=== PATIENT | male | born 1955 | race Hispanic/Latino ===

== ENCOUNTER 2023-02-22 17:49 | Inpatient (IN) | payer MEDICARE ==
[~2023-02-22] VITALS: Ht 177.8 cm; Wt 61.2 kg
[2023-02-22] MEDS ORDERED: SODIUM CHLORIDE 0.9% 1000ML 1,000 ML IV STA (18:23)
[2023-02-22] MEDS ORDERED: ACETAMINOPHEN 325 MG TAB PO ONE (18:30)
[2023-02-22 18:45] LABS: BASOPHILS % 0.2 % (0.0-1.0); EOSINOPHILS % 0.2 % (0.0-6.0); HEMATOCRIT 25.1 % (38.2-49.6); HEMOGLOBIN 8.8 g/dL (14.0-18.0); LYMPHOCYTES # (AUTO) 0.7 (1.0-3.2); LYMPHOCYTES % 12.6 % (18.0-39.1); MEAN CORPUSCULAR HGB CONC 35.1 g/dL (31-35); MEAN CORPUSCULAR VOLUME 91.3 fL (81-99); MONOCYTES # (AUTO) 0.2 (0.2-0.8); MONOCYTES % 3.5 % (4.4-11.3); NEUTROPHILS # (AUTO) 4.4 (2.1-6.9); PLATELET COUNT 102 x10e3/uL (140-360); RED BLOOD COUNT 2.75 x10e6/uL (4.3-5.7); RED CELL DISTRIBUTION WIDTH 14.7 % (11.7-14.4)
[2023-02-22 18:52] LABS: CLARITY,URINE SL CLOUDY (CLEAR); COLOR,URINE AMBER (YELLOW); KETONES,URINE TRACE (NEGATIVE); LEUKOCYTE ESTERASE ,URINE NEGATIVE (NEGATIVE); NITRITE,URINE NEGATIVE (NEGATIVE); PROTEIN,URINE DIPSTICK 1+ (NEGATIVE); URINE UROBILINOGEN 0.2 mg/dL (0.2 - 1)
[2023-02-22 19:04] LABS: AMORPHOUS SEDIMENT,URINE MODERATE (FEW); BACTERIA,URINE MODERATE /HPF; MUCUS,URINE MODERATE (RARE); WBC,URINE (MAN) 0-5 /HPF (0-5)
[2023-02-22 19:05] LABS: ALANINE AMINOTRANSFERASE 31 IU/L (0-55); ALBUMIN 2.2 g/dL (3.5-5.0); ALBUMIN/GLOBULIN RATIO 0.5 (0.8-2.0); ALKALINE PHOSPHATASE 46 IU/L (40-150); ANION GAP 11.6 mmol/L (8-16); BLOOD UREA NITROGEN 20 mg/dL (7-26); BUN/CREATININE RATIO 29 (6-25); CALCIUM 8.8 mg/dL (8.4-10.2); CARBON DIOXIDE 24 mmol/L (22-29); CHLORIDE 96 mmol/L (98-107); CREATINE KINASE 8 IU/L (30-200); GLUCOSE 106 mg/dL (74-118); POTASSIUM 3.6 mmol/L (3.5-5.1); SODIUM 128 mmol/L (136-145)
[2023-02-22] MEDS ORDERED: Morphine 2mg Syringe 2 MG/ML SYR IV PRN (19:45)
[2023-02-22] MEDS ORDERED: IOPAMIDOL 370 MG/ML 100 ML INFUS..BTL INJ ONE (19:49)
[2023-02-22] MEDS ORDERED: SODIUM CHLORIDE 0.9% 1000ML 1,000 ML ONE (19:54)
[2023-02-22] MEDS ORDERED: ONDANSETRON HCL INJ 2MG/ML 2ML 2 MG/ML VIAL ONE (19:59)
[2023-02-22] MEDS ORDERED: Morphine 2mg Syringe 2 MG/ML SYR ONE (20:00)
[2023-02-22] MEDS: SODIUM CHLORIDE 0.9% 1000ML 1,000 ML IV SCH (20:19)
[2023-02-22] MEDS: ONDANSETRON HCL INJ 2MG/ML 2ML 2 MG/ML VIAL IV PRN (20:22)
[2023-02-22] MEDS ORDERED: SODIUM CHLORIDE 0.9% 1000ML 1,000 ML IV ONE (21:45)
[2023-02-22] MEDS ORDERED: OSELTAMIVIR PHOSPHATE 75 MG CAP PO ONE (22:12)
[2023-02-22] MEDS: OSELTAMIVIR PHOSPHATE 75 MG CAP PO SCH (22:16)
[2023-02-23] VITALS (9 sets, daily range): BP systolic 98–109; BP diastolic 58–68
[2023-02-23] MEDS ORDERED: PREDNISONE5 MG PO (01:09)
[2023-02-23] MEDS ORDERED: TRAZODONE HCL50 MG PO (01:09)
[2023-02-23] MEDS ORDERED: MAGOX 400400 MG PO (01:09)
[2023-02-23] MEDS ORDERED: FLOMAX0.4 MG PO (01:09)
[2023-02-23] MEDS ORDERED: NAPROXEN375 M1 PO (01:09)
[2023-02-23] MEDS ORDERED: PLAQUENIL200 MG PO (01:09)
[2023-02-23] MEDS: ONDANSETRON HCL INJ 2MG/ML 2ML 2 MG/ML VIAL IV PRN ×2 (01:54→01:55)
[2023-02-23] MEDS ORDERED: GUAIFENESIN/DEXTROMETHORPHAN LIQD 5 ML UDC PO PRN (04:30)
[2023-02-23] MEDS ORDERED: ALBUTEROL SULF 0.083% NEB SOLN 3 ML NEB NEB PRN (04:30)
[2023-02-23] MEDS ORDERED: MAGNESIUM/ALUMINUM/SIMETHICONE 30 ML UDC PO PRN (04:30)
[2023-02-23] MEDS ORDERED: HYDRALAZINE HCL 20 MG/ML VIAL IV PRN (04:30)
[2023-02-23] MEDS ORDERED: MELATONIN 3 MG TAB PO PRN (04:30)
[2023-02-23] MEDS: SODIUM CHLORIDE 0.9% 1000ML 1,000 ML IV SCH ×3 (05:40→20:19)
[2023-02-23 06:38] LABS: ALBUMIN 1.7 g/dL (3.5-5.0); ALBUMIN/GLOBULIN RATIO 0.5 (0.8-2.0); ANION GAP 9.7 mmol/L (8-16); CALCIUM 7.6 mg/dL (8.4-10.2); CREATININE, SERUM 0.68 mg/dL (0.72-1.25); POTASSIUM 3.7 mmol/L (3.5-5.1)
[2023-02-23 06:55] LABS: EOSINOPHILS % 0.6 % (0.0-6.0); HEMOGLOBIN 7.2 g/dL (14.0-18.0); LYMPHOCYTES # (AUTO) 0.5 (1.0-3.2); LYMPHOCYTES % 14.7 % (18.0-39.1); MEAN CORPUSCULAR HEMOGLOBIN 32.6 pg (28-32); MEAN CORPUSCULAR VOLUME 95.9 fL (81-99); MONOCYTES # (AUTO) 0.2 (0.2-0.8); MONOCYTES % 5.3 % (4.4-11.3); NEUTROPHILS # (AUTO) 2.5 (2.1-6.9); NEUTROPHILS % 76.9 % (38.7-80.0); RED BLOOD COUNT 2.21 x10e6/uL (4.3-5.7); RED CELL DISTRIBUTION WIDTH 14.9 % (11.7-14.4)
[2023-02-23 06:59] LABS: PLATELET COUNT 103 x10e3/uL (140-360)
[2023-02-23 07:04] LABS: HEMATOCRIT 21.2 % (38.2-49.6)
[2023-02-23] MEDS: OSELTAMIVIR PHOSPHATE 75 MG CAP PO SCH ×2 (07:58→16:38)
[2023-02-23] MEDS: HYDROXYCHLOROQUINE SULFATE 200 MG TAB PO SCH (07:58)
[2023-02-23] MEDS: PREDNISONE 5 MG TAB PO SCH (07:58)
[2023-02-23] MEDS: MULTIVITAMINS/MINERALS TAB PO SCH (07:58)
[2023-02-23] MEDS: TAMSULOSIN HCL 0.4 MG CAP PO SCH (07:58)
[2023-02-23] MEDS: MAGNESIUM OXIDE 400 MG TAB PO SCH ×2 (07:58→16:38)
[2023-02-23] MEDS: TRAMADOL HCL 50 MG TAB PO PRN (12:18)
[2023-02-23] MEDS ORDERED: ENOXAPARIN SOD INJ 40 MG/0.4 ML SYR SC SCH (17:00)
[2023-02-23] MEDS: TRAZODONE HCL 50 MG TAB PO SCH (20:19)
[2023-02-24] VITALS (8 sets, daily range): BP systolic 99–117; BP diastolic 60–78
[2023-02-24] MEDS: TRAMADOL HCL 50 MG TAB PO PRN ×3 (01:37→20:48)
[2023-02-24] MEDS: ACETAMINOPHEN 325 MG TAB PO PRN (01:38)
[2023-02-24] MEDS ORDERED: IOPAMIDOL 370 MG/ML 100 ML INFUS..BTL INJ ONE (01:39)
[2023-02-24] MEDS: SODIUM CHLORIDE 0.9% 1000ML 1,000 ML IV SCH ×2 (05:03→12:19)
[2023-02-24 07:51] LABS: FERRITIN 2486.99 ng/mL (21.81-274.66)
[2023-02-24] MEDS: HYDROXYCHLOROQUINE SULFATE 200 MG TAB PO SCH (08:05)
[2023-02-24] MEDS: MAGNESIUM OXIDE 400 MG TAB PO SCH ×2 (08:05→16:40)
[2023-02-24] MEDS: TAMSULOSIN HCL 0.4 MG CAP PO SCH (08:05)
[2023-02-24] MEDS: OSELTAMIVIR PHOSPHATE 75 MG CAP PO SCH ×2 (08:05→16:40)
[2023-02-24] MEDS: MULTIVITAMINS/MINERALS TAB PO SCH (08:05)
[2023-02-24] MEDS: PREDNISONE 5 MG TAB PO SCH (08:05)
[2023-02-24] MEDS ORDERED: POTASSIUM CHLORIDE 20 MEQ TAB CR PO ONE (14:45)
[2023-02-24] MEDS ORDERED: ALBUTEROL SULF 0.083% NEB SOLN 3 ML NEB NEB PRN (14:45)
[2023-02-24] MEDS ORDERED: FUROSEMIDE INJ 10 MG/ML 2 ML VIAL IV ONE (14:45)
[2023-02-24] MEDS: KETOROLAC TROMETHAMINE 30 MG/ML VIAL IV PRN ×2 (15:05→21:51)
[2023-02-24] MEDS: IRON SUCROSE 100 MG in SODIUM CHLORIDE 0.9% 100 ML IV SCH (15:09)
[2023-02-24] MEDS: TRAZODONE HCL 50 MG TAB PO SCH (20:45)
[2023-02-24] MEDS: ONDANSETRON HCL INJ 2MG/ML 2ML 2 MG/ML VIAL IV PRN (21:58)
[2023-02-24] MEDS: IPRATROPIUM BROMIDE 0.02% 2.5 ML NEB NEB SCH (22:35)
[2023-02-25] VITALS (7 sets, daily range): BP systolic 100–115; BP diastolic 62–76
[2023-02-25 05:12] LABS: BASOPHILS % 0.3 % (0.0-1.0); EOSINOPHILS % 0.6 % (0.0-6.0); LYMPHOCYTES # (AUTO) 0.6 (1.0-3.2); LYMPHOCYTES % 17.3 % (18.0-39.1); MEAN CORPUSCULAR HEMOGLOBIN 31.7 pg (28-32); MEAN CORPUSCULAR HGB CONC 34.6 g/dL (31-35); MONOCYTES # (AUTO) 0.2 (0.2-0.8); MONOCYTES % 6.5 % (4.4-11.3); NEUTROPHILS # (AUTO) 2.5 (2.1-6.9); NEUTROPHILS % 74.4 % (38.7-80.0); PLATELET COUNT 101 x10e3/uL (140-360); RED BLOOD COUNT 2.05 x10e6/uL (4.3-5.7); RED CELL DISTRIBUTION WIDTH 14.4 % (11.7-14.4)
[2023-02-25] MEDS: ACETAMINOPHEN 325 MG TAB PO PRN (05:21)
[2023-02-25 05:28] LABS: MEAN CORPUSCULAR VOLUME 91.7 fL (81-99)
[2023-02-25 05:29] LABS: HEMATOCRIT 18.8 % (38.2-49.6); HEMOGLOBIN 6.5 g/dL (14.0-18.0)
[2023-02-25 05:41] LABS: ALBUMIN 1.6 g/dL (3.5-5.0); ALBUMIN/GLOBULIN RATIO 0.5 (0.8-2.0); ANION GAP 9.2 mmol/L (8-16); CALCIUM 7.3 mg/dL (8.4-10.2); CREATININE, SERUM 0.71 mg/dL (0.72-1.25); POTASSIUM 4.2 mmol/L (3.5-5.1)
[2023-02-25] MEDS ORDERED: SODIUM CHLORIDE 0.9% 250ML 250 ML IV ONE (05:45)
[2023-02-25] MEDS ORDERED: MAGNESIUM SULFATE 2GM/50ML 50 ML IV ONE ×2 (06:00→16:45)
[2023-02-25] MEDS: ONDANSETRON HCL INJ 2MG/ML 2ML 2 MG/ML VIAL IV PRN (06:00)
[2023-02-25] MEDS: KETOROLAC TROMETHAMINE 30 MG/ML VIAL IV PRN (06:00)
[2023-02-25] MEDS: IPRATROPIUM BROMIDE 0.02% 2.5 ML NEB NEB SCH ×3 (06:30→23:25)
[2023-02-25] MEDS: HYDROXYCHLOROQUINE SULFATE 200 MG TAB PO SCH (08:24)
[2023-02-25] MEDS: TAMSULOSIN HCL 0.4 MG CAP PO SCH (08:24)
[2023-02-25] MEDS: PREDNISONE 5 MG TAB PO SCH (08:24)
[2023-02-25] MEDS: MULTIVITAMINS/MINERALS TAB PO SCH (08:25)
[2023-02-25] MEDS: MAGNESIUM OXIDE 400 MG TAB PO SCH ×2 (08:25→17:40)
[2023-02-25] MEDS: OSELTAMIVIR PHOSPHATE 75 MG CAP PO SCH ×2 (08:25→17:40)
[2023-02-25] MEDS ORDERED: SODIUM CHLORIDE 0.9% 250ML 250 ML ONE (09:52)
[2023-02-25] MEDS: TRAMADOL HCL 50 MG TAB PO PRN (10:16)
[2023-02-25] MEDS ORDERED: SODIUM CHLORIDE 0.9% 1000ML 1,000 ML IV SCH (12:30)
[2023-02-25 15:01] LABS: ALBUMIN 1.9 g/dL (3.5-5.0); ALBUMIN/GLOBULIN RATIO 0.5 (0.8-2.0); ANION GAP 10.6 mmol/L (8-16); CALCIUM 8.1 mg/dL (8.4-10.2); CREATININE, SERUM 0.69 mg/dL (0.72-1.25); POTASSIUM 4.6 mmol/L (3.5-5.1)
[2023-02-25] MEDS: IRON SUCROSE 100 MG in SODIUM CHLORIDE 0.9% 100 ML IV SCH (15:36)
[2023-02-25 17:30] LABS: EOSINOPHILS % 0.3 % (0.0-6.0); HEMATOCRIT 24.1 % (38.2-49.6); HEMOGLOBIN 8.2 g/dL (14.0-18.0); LYMPHOCYTES # (AUTO) 0.5 (1.0-3.2); LYMPHOCYTES % 13.8 % (18.0-39.1); MEAN CORPUSCULAR HEMOGLOBIN 30.7 pg (28-32); MEAN CORPUSCULAR VOLUME 90.3 fL (81-99); MONOCYTES # (AUTO) 0.1 (0.2-0.8); MONOCYTES % 3.7 % (4.4-11.3); NEUTROPHILS # (AUTO) 3.1 (2.1-6.9); NEUTROPHILS % 81.7 % (38.7-80.0); PLATELET COUNT 88 x10e3/uL (140-360); RED BLOOD COUNT 2.67 x10e6/uL (4.3-5.7); RED CELL DISTRIBUTION WIDTH 15.7 % (11.7-14.4)
[2023-02-25] MEDS: PANTOPRAZOLE SOD 40 MG TABEC PO SCH (17:40)
[2023-02-25] MEDS: DOCUSATE SODIUM 100 MG CAP PO PRN (21:33)
[2023-02-25] MEDS: TRAZODONE HCL 50 MG TAB PO SCH (21:33)
[2023-02-26] MEDS: TRAMADOL HCL 50 MG TAB PO PRN ×2 (00:02→21:17)
[2023-02-26 01:21] VITALS: BP 121/70
[2023-02-26 05:44] VITALS: BP 112/61
[2023-02-26 05:56] LABS: BASOPHILS % 0.3 % (0.0-1.0); EOSINOPHILS % 0.3 % (0.0-6.0); HEMATOCRIT 22.1 % (38.2-49.6); HEMOGLOBIN 7.7 g/dL (14.0-18.0); LYMPHOCYTES # (AUTO) 0.5 (1.0-3.2); LYMPHOCYTES % 12.1 % (18.0-39.1); MEAN CORPUSCULAR HEMOGLOBIN 30.7 pg (28-32); MEAN CORPUSCULAR HGB CONC 34.8 g/dL (31-35); MONOCYTES # (AUTO) 0.1 (0.2-0.8); MONOCYTES % 3.5 % (4.4-11.3); NEUTROPHILS # (AUTO) 3.3 (2.1-6.9); NEUTROPHILS % 83.3 % (38.7-80.0); PLATELET COUNT 101 x10e3/uL (140-360); RED BLOOD COUNT 2.51 x10e6/uL (4.3-5.7); RED CELL DISTRIBUTION WIDTH 15.4 % (11.7-14.4)
[2023-02-26 06:10] LABS: ANION GAP 10.1 mmol/L (8-16); CALCIUM 7.5 mg/dL (8.4-10.2); CREATININE, SERUM 0.67 mg/dL (0.72-1.25); MAGNESIUM 1.5 MG/DL (1.3-2.1); POTASSIUM 4.1 mmol/L (3.5-5.1)
[2023-02-26 06:55] LABS: THYROID STIMULATING HORMONE 1.374 uIU/mL (0.350-4.940)
[2023-02-26] MEDS: IPRATROPIUM BROMIDE 0.02% 2.5 ML NEB NEB SCH ×3 (07:36→19:40)
[2023-02-26 08:14] VITALS: BP 103/59
[2023-02-26] MEDS: MULTIVITAMINS/MINERALS TAB PO SCH (09:53)
[2023-02-26] MEDS: MAGNESIUM OXIDE 400 MG TAB PO SCH ×2 (09:53→17:32)
[2023-02-26] MEDS: PREDNISONE 5 MG TAB PO SCH (09:53)
[2023-02-26] MEDS: OSELTAMIVIR PHOSPHATE 75 MG CAP PO SCH ×2 (09:53→17:32)
[2023-02-26] MEDS: PANTOPRAZOLE SOD 40 MG TABEC PO SCH ×2 (09:53→17:32)
[2023-02-26] MEDS: TAMSULOSIN HCL 0.4 MG CAP PO SCH (09:53)
[2023-02-26] MEDS: HYDROXYCHLOROQUINE SULFATE 200 MG TAB PO SCH (09:54)
[2023-02-26 11:08] LABS: INR 1.06; PROTHROMBIN TIME 14.3 seconds (11.9-14.5)
[2023-02-26 12:21] VITALS: BP 96/68
[2023-02-26] MEDS ORDERED: MAGNESIUM SULFATE 2GM/50ML 50 ML IV ONE (15:15)
[2023-02-26] MEDS ORDERED: SODIUM CHLORIDE 1 GM TAB PO ONE (15:50)
[2023-02-26 16:39] VITALS: BP 109/66
[2023-02-26] MEDS: DOCUSATE SODIUM 100 MG CAP PO PRN (17:32)
[2023-02-26 21:00] VITALS: BP 106/70
[2023-02-26] MEDS: TRAZODONE HCL 50 MG TAB PO SCH (21:17)
[2023-02-27] VITALS: BP 112/69
[2023-02-27 04:00] VITALS: BP 119/69
[2023-02-27] MEDS: TRAMADOL HCL 50 MG TAB PO PRN ×2 (04:16→14:20)
[2023-02-27 05:03] LABS: EOSINOPHILS % 0.6 % (0.0-6.0); HEMATOCRIT 23.6 % (38.2-49.6); LYMPHOCYTES # (AUTO) 0.3 (1.0-3.2); LYMPHOCYTES % 10.1 % (18.0-39.1); MEAN CORPUSCULAR HEMOGLOBIN 30.5 pg (28-32); MEAN CORPUSCULAR HGB CONC 33.9 g/dL (31-35); MEAN CORPUSCULAR VOLUME 90.1 fL (81-99); MONOCYTES # (AUTO) 0.2 (0.2-0.8); MONOCYTES % 4.6 % (4.4-11.3); NEUTROPHILS # (AUTO) 2.8 (2.1-6.9); NEUTROPHILS % 84.1 % (38.7-80.0); PLATELET COUNT 93 x10e3/uL (140-360); RED BLOOD COUNT 2.62 x10e6/uL (4.3-5.7); RED CELL DISTRIBUTION WIDTH 15.6 % (11.7-14.4)
[2023-02-27 05:29] LABS: ANION GAP 9.1 mmol/L (8-16); CALCIUM 7.8 mg/dL (8.4-10.2); CREATININE, SERUM 0.71 mg/dL (0.72-1.25); MAGNESIUM 1.7 MG/DL (1.3-2.1); POTASSIUM 4.1 mmol/L (3.5-5.1)
[2023-02-27] MEDS: IPRATROPIUM BROMIDE 0.02% 2.5 ML NEB NEB SCH ×3 (07:27→19:30)
[2023-02-27] MEDS ORDERED: GADOBENATE DIMEGLUMINE 1 ML IV ONE (07:49)
[2023-02-27 09:35] VITALS: BP 98/63
[2023-02-27] MEDS: OSELTAMIVIR PHOSPHATE 75 MG CAP PO SCH ×2 (10:09→17:51)
[2023-02-27] MEDS: SODIUM CHLORIDE 1 GM TAB PO SCH (10:09)
[2023-02-27] MEDS: PREDNISONE 5 MG TAB PO SCH (10:09)
[2023-02-27] MEDS: PANTOPRAZOLE SOD 40 MG TABEC PO SCH ×2 (10:09→17:51)
[2023-02-27] MEDS: HYDROXYCHLOROQUINE SULFATE 200 MG TAB PO SCH (10:09)
[2023-02-27] MEDS: MAGNESIUM OXIDE 400 MG TAB PO SCH ×2 (10:09→17:51)
[2023-02-27] MEDS: MULTIVITAMINS/MINERALS TAB PO SCH (10:09)
[2023-02-27] MEDS: TAMSULOSIN HCL 0.4 MG CAP PO SCH (10:09)
[2023-02-27 12:28] VITALS: BP 99/51
[2023-02-27 16:00] VITALS: BP 109/65
[2023-02-27 16:45] LABS: CREATINE KINASE MB 0.6 ng/mL (0-5.0)
[2023-02-27] MEDS: PREDNISONE 20 MG TAB PO SCH (17:51)
[2023-02-27 20:00] VITALS: BP 109/54
[2023-02-27] MEDS: TRAZODONE HCL 50 MG TAB PO SCH (22:31)
[2023-02-28] VITALS (8 sets, daily range): BP systolic 97–120; BP diastolic 51–71
[2023-02-28] MEDS: IPRATROPIUM BROMIDE 0.02% 2.5 ML NEB NEB SCH ×3 (07:50→19:55)
[2023-02-28] MEDS: SODIUM CHLORIDE 1 GM TAB PO SCH (10:22)
[2023-02-28] MEDS: MULTIVITAMINS/MINERALS TAB PO SCH (10:22)
[2023-02-28] MEDS: MAGNESIUM OXIDE 400 MG TAB PO SCH ×2 (10:22→17:02)
[2023-02-28] MEDS: TAMSULOSIN HCL 0.4 MG CAP PO SCH (10:22)
[2023-02-28] MEDS: PANTOPRAZOLE SOD 40 MG TABEC PO SCH ×2 (10:22→17:02)
[2023-02-28] MEDS: PREDNISONE 20 MG TAB PO SCH (10:22)
[2023-02-28] MEDS: HYDROXYCHLOROQUINE SULFATE 200 MG TAB PO SCH (10:22)
[2023-02-28] MEDS: TRAMADOL HCL 50 MG TAB PO PRN (17:06)
[2023-02-28] MEDS: TRAZODONE HCL 50 MG TAB PO SCH (20:18)
[2023-03-01] VITALS: BP 102/83
[2023-03-01 05:52] LABS: HEMOGLOBIN 7.9 g/dL (14.0-18.0); LYMPHOCYTES # (AUTO) 0.6 (1.0-3.2); MEAN CORPUSCULAR HEMOGLOBIN 30.9 pg (28-32); MEAN CORPUSCULAR HGB CONC 32.9 g/dL (31-35); MEAN CORPUSCULAR VOLUME 93.8 fL (81-99); MONOCYTES # (AUTO) 0.2 (0.2-0.8); MONOCYTES % 5.8 % (4.4-11.3); NEUTROPHILS % 77.7 % (38.7-80.0); PLATELET COUNT 132 x10e3/uL (140-360); RED BLOOD COUNT 2.56 x10e6/uL (4.3-5.7); RED CELL DISTRIBUTION WIDTH 15.4 % (11.7-14.4)
[2023-03-01 06:05] VITALS: BP 116/70
[2023-03-01] MEDS: IPRATROPIUM BROMIDE 0.02% 2.5 ML NEB NEB SCH ×2 (06:05→13:30)
[2023-03-01 08:00] VITALS: BP 116/70
[2023-03-01 08:19] VITALS: BP 119/63
[2023-03-01] MEDS: PANTOPRAZOLE SOD 40 MG TABEC PO SCH ×2 (08:19→16:34)
[2023-03-01] MEDS: HYDROXYCHLOROQUINE SULFATE 200 MG TAB PO SCH (08:20)
[2023-03-01] MEDS: MAGNESIUM OXIDE 400 MG TAB PO SCH (08:20)
[2023-03-01] MEDS: SODIUM CHLORIDE 1 GM TAB PO SCH (08:21)
[2023-03-01] MEDS: PREDNISONE 20 MG TAB PO SCH (08:21)
[2023-03-01] MEDS: TAMSULOSIN HCL 0.4 MG CAP PO SCH (08:21)
[2023-03-01] MEDS: MULTIVITAMINS/MINERALS TAB PO SCH (08:21)
[2023-03-01] MEDS: TRAMADOL HCL 50 MG TAB PO PRN (08:35)
[2023-03-01 12:21] VITALS: BP 128/63
[2023-03-01] MEDS ORDERED: SODIUM CHLORI1000 M2 PO (12:26)
[2023-03-01] MEDS ORDERED: DOCUSATE SODIU100 MG PO (12:26)
[2023-03-01] MEDS ORDERED: PROAIR DIGIHAL90 MCG INH (12:26)
[2023-03-01] MEDS ORDERED: PROTONIX40 MG/ML PO (12:26)
[2023-03-01] MEDS ORDERED: HYDROCODONE/APAP 7.5MG-325MG 1 EA TAB PO PRN (12:30)
[2023-03-01] MEDS ORDERED: HYDROCODONE/APAP 5MG-325MG TAB PO PRN (12:30)
[2023-03-01] MEDS ORDERED: ONDANSETRON HCL 4 MG ORAL DISINTEGRATING TAB PO PRN (13:00)
== END 2023-03-01 19:20 | disposition home or self-care (01) | DRG 866 ==
LOC: ER 17:59 → ERHOLD 19:47 → MED/SURG3 02-23 00:02 → OBSVTOIN 02-24 14:19
PROVIDERS: ADMIT Internal Medicine Critical Care Medicine; ATTEND Internal Medicine Critical Care Medicine
PROC: 30233N1 Transfusion of Nonautologous Red Blood Cells into Peripheral Vein, Percutaneous Approach (ICD-10-PCS; principal; 2023-02-25)
DX: J10.2 Influenza due to other identified influenza virus with gastrointestinal manifestations (principal); D84.821 Immunodeficiency due to drugs; D61.818 Other pancytopenia; E22.2 Syndrome of inappropriate secretion of antidiuretic hormone; Z85.72 Personal history of non-Hodgkin lymphomas; R49.22 Hyponasality; E83.42 Hypomagnesemia; E86.0 Dehydration; M19.90 Unspecified osteoarthritis, unspecified site; D63.8 Anemia in other chronic diseases classified elsewhere; J40 Bronchitis, not specified as acute or chronic; D50.9 Iron deficiency anemia, unspecified; M19.91 Primary osteoarthritis, unspecified site; D69.6 Thrombocytopenia, unspecified; M89.9 Disorder of bone, unspecified
CPT/HCPCS: 0223U; 36415; 71045; 71046; 71260; 72157; 72158; 73521; 74177; 76705; 80048; 80053; 81001; 82550; 82553; 82607; 82728; 83540; 83605; 83615; 83690; 83735; 83930; 84100; 84443; 84466; 84478; 84484; 85025; 85045; 85610; 86850; 86900; 86920; 87040; 87400; 93005; 94640; 94799; 99285; G0378; J0696; J1650; J1756; J1885; J1940; J2270; J2405; J3475; J7030; J7050; J7512; P9016; Q9967

== ENCOUNTER 2023-03-28 13:58 | Inpatient (IN) | payer MEDICARE ==
[~2023-03-28] VITALS: Ht 177.8 cm; Wt 61.2 kg
[~2023-03-28 13:58] MED LIST: DOCUSATE SODIU100 MG PO; FLOMAX0.4 MG PO; MAGOX 400400 MG PO; NAPROXEN375 M1 PO; PLAQUENIL200 MG PO; PREDNISONE5 MG PO; PROAIR DIGIHAL90 MCG INH; PROTONIX40 MG/ML PO; SODIUM CHLORI1000 M2 PO; TRAZODONE HCL50 MG PO
[2023-03-28] MEDS ORDERED: SODIUM CHLORIDE 0.9% 1000ML 1,000 ML IV ONE ×2 (14:45→15:45)
[2023-03-28] MEDS ORDERED: ACETAMINOPHEN 325 MG TAB PO ONE (14:45)
[2023-03-28 15:11] LABS: BASOPHILS % 0.2 % (0.0-1.0); HEMATOCRIT 25.6 % (38.2-49.6); HEMOGLOBIN 8.5 g/dL (14.0-18.0); LYMPHOCYTES # (AUTO) 1.9 (1.0-3.2); LYMPHOCYTES % 32.8 % (18.0-39.1); MEAN CORPUSCULAR HEMOGLOBIN 29.5 pg (28-32); MEAN CORPUSCULAR HGB CONC 33.2 g/dL (31-35); MEAN CORPUSCULAR VOLUME 88.9 fL (81-99); MONOCYTES # (AUTO) 0.3 (0.2-0.8); MONOCYTES % 5.5 % (4.4-11.3); NEUTROPHILS # (AUTO) 3.6 (2.1-6.9); NEUTROPHILS % 60.8 % (38.7-80.0); PLATELET COUNT 117 x10e3/uL (140-360); RED BLOOD COUNT 2.88 x10e6/uL (4.3-5.7); RED CELL DISTRIBUTION WIDTH 17.2 % (11.7-14.4)
[2023-03-28 15:25] LABS: ALBUMIN 2.5 g/dL (3.5-5.0); ALBUMIN/GLOBULIN RATIO 0.5 (0.8-2.0); ANION GAP 11.4 mmol/L (8-16); CALCIUM 8.2 mg/dL (8.4-10.2); CREATININE, SERUM 0.67 mg/dL (0.72-1.25); POTASSIUM 4.4 mmol/L (3.5-5.1)
[2023-03-28] MEDS ORDERED: IOPAMIDOL 370 MG/ML 100 ML INFUS..BTL INJ ONE (15:50)
[2023-03-28] MEDS ORDERED: ONDANSETRON HCL INJ 2MG/ML 2ML 2 MG/ML VIAL IV PRN (16:45)
[2023-03-28] MEDS ORDERED: SODIUM CHLORIDE FLUSH 10 ML SYR INJ PRN (16:45)
[2023-03-28 17:43] LABS: CLARITY,URINE SL CLOUDY (CLEAR); COLOR,URINE AMBER (YELLOW); KETONES,URINE NEGATIVE (NEGATIVE); LEUKOCYTE ESTERASE ,URINE NEGATIVE (NEGATIVE); NITRITE,URINE NEGATIVE (NEGATIVE); PROTEIN,URINE DIPSTICK 1+ (NEGATIVE); URINE UROBILINOGEN 0.2 mg/dL (0.2 - 1)
[2023-03-28] MEDS ORDERED: Vancomycin IV 1 GM in SODIUM CHLORIDE 0.9% 250ML 250 ML IV ONE (17:45)
[2023-03-28] MEDS: DEXAMETHASONE 4 MG TAB PO SCH (17:47)
[2023-03-28 17:55] LABS: BACTERIA,URINE FEW /HPF; MUCUS,URINE MODERATE (RARE)
[2023-03-28] MEDS ORDERED: ACETAMINOPHEN 325 MG TAB PO PRN (18:00)
[2023-03-28] MEDS ORDERED: ZOLPIDEM TARTRATE 5 MG TAB PO PRN (18:00)
[2023-03-28 20:00] VITALS: BP 105/71; PULSE 85; RESP 20; TEMP 97.8; O2SAT 96
[2023-03-28] MEDS ORDERED: SODIUM CHLORIDE 0.9% 250ML 250 ML ONE (20:17)
[2023-03-28 21:00] VITALS: BP 105/71; PULSE 85; RESP 20; TEMP 97.8; O2SAT 96
[2023-03-28] MEDS ORDERED: HYDROCODON-ACE1 EA12 PO (21:39)
[2023-03-28] MEDS ORDERED: IBUPROFEN800 MG PO (21:39)
[2023-03-28] MEDS ORDERED: CIPROFLOXACIN500 MG PO (21:39)
[2023-03-28 23:00] VITALS: PULSE 73; RESP 18; O2SAT 96
[2023-03-28] MEDS: ALBUTEROL/IPRATROPIUM 3 ML NEB NEB SCH (23:00)
[2023-03-29] VITALS (14 sets, daily range): BP systolic 105–130; BP diastolic 57–115; PULSE 63–109; RESP 16–20; TEMP 97.4–98.8; O2SAT 94–100
[2023-03-29] MEDS ORDERED: ALBUTEROL/IPRATROPIUM 3 ML NEB NEB PRN (01:00)
[2023-03-29] MEDS ORDERED: HYDRALAZINE HCL 20 MG/ML VIAL IV PRN (01:00)
[2023-03-29] MEDS ORDERED: SIMETHICONE 80 MG CHEW PO PRN (01:00)
[2023-03-29] MEDS ORDERED: LIDOCAINE 4% PATCH TP PRN (01:00)
[2023-03-29] MEDS ORDERED: DEXTROSE 50% SYRINGE 50 ML IV PRN (01:00)
[2023-03-29] MEDS ORDERED: DOCUSATE SODIUM 100 MG CAP PO PRN (01:00)
[2023-03-29] MEDS ORDERED: ONDANSETRON HCL INJ 2MG/ML 2ML 2 MG/ML VIAL IV PRN (01:00)
[2023-03-29] MEDS ORDERED: MELATONIN 5 MG TABLET PO PRN (01:00)
[2023-03-29] MEDS ORDERED: POTASSIUM CHLORIDE 20 MEQ TAB CR PO PRN (01:00)
[2023-03-29] MEDS ORDERED: DIPHENHYDRAMINE HCL 25 MG CAP PO PRN (01:00)
[2023-03-29] MEDS ORDERED: ACETAMINOPHEN 325 MG TAB PO PRN (01:00)
[2023-03-29] MEDS ORDERED: BENZONATATE 100 MG CAP PO PRN (01:00)
[2023-03-29] MEDS: ALBUTEROL/IPRATROPIUM 3 ML NEB NEB SCH ×6 (03:25→23:05)
[2023-03-29] MEDS: DEXAMETHASONE 4 MG TAB PO SCH ×2 (05:29→16:58)
[2023-03-29 06:34] LABS: BASOPHILS % 0.3 % (0.0-1.0); HEMATOCRIT 21.9 % (38.2-49.6); HEMOGLOBIN 7.2 g/dL (14.0-18.0); LYMPHOCYTES # (AUTO) 1.5 (1.0-3.2); LYMPHOCYTES % 38.9 % (18.0-39.1); MEAN CORPUSCULAR HEMOGLOBIN 29.5 pg (28-32); MEAN CORPUSCULAR HGB CONC 32.9 g/dL (31-35); MEAN CORPUSCULAR VOLUME 89.8 fL (81-99); MONOCYTES # (AUTO) 0.2 (0.2-0.8); MONOCYTES % 5.3 % (4.4-11.3); NEUTROPHILS # (AUTO) 2.1 (2.1-6.9); PLATELET COUNT 104 x10e3/uL (140-360); RED BLOOD COUNT 2.44 x10e6/uL (4.3-5.7); RED CELL DISTRIBUTION WIDTH 17.2 % (11.7-14.4)
[2023-03-29 06:53] LABS: ANION GAP 10.1 mmol/L (8-16); CALCIUM 8.1 mg/dL (8.4-10.2); CREATININE, SERUM 0.63 mg/dL (0.72-1.25); POTASSIUM 4.1 mmol/L (3.5-5.1)
[2023-03-29 08:07] LABS: HEMATOCRIT 23.2 % (38.2-49.6); HEMOGLOBIN 7.7 g/dL (14.0-18.0)
[2023-03-29] MEDS ORDERED: PANTOPRAZOLE SOD 40 MG TABEC PO SCH (09:00)
[2023-03-29] MEDS: PANTOPRAZOLE SOD 40 MG TABEC PO SCH (09:48)
[2023-03-29] MEDS: TAMSULOSIN HCL 0.4 MG CAP PO SCH (09:48)
[2023-03-29] MEDS: DOCUSATE SODIUM 100 MG CAP PO SCH ×2 (09:48→16:58)
[2023-03-29] MEDS: HYDROXYCHLOROQUINE SULFATE 200 MG TAB PO SCH (09:48)
[2023-03-29] MEDS ORDERED: DEXTROSE 5% 1,000 ML IV ONE (10:00)
[2023-03-29] MEDS: ENOXAPARIN SOD INJ 40 MG/0.4 ML SYR SC SCH (16:58)
[2023-03-29] MEDS: SODIUM CHLORIDE 452MG TAB PO SCH (17:56)
[2023-03-29] MEDS ORDERED: IOPAMIDOL 370 MG/ML 100 ML INFUS..BTL INJ ONE (19:18)
[2023-03-29] MEDS ORDERED: DEXAMETHASONE 4 MG TAB PO SCH (21:00)
[2023-03-30] VITALS (13 sets, daily range): BP systolic 94–119; BP diastolic 52–66; PULSE 65–92; RESP 15–21; TEMP 97.6–98.7; O2SAT 93–100
[2023-03-30] MEDS: ALBUTEROL/IPRATROPIUM 3 ML NEB NEB SCH ×6 (03:02→23:05)
[2023-03-30 06:22] LABS: HEMATOCRIT 21.8 % (38.2-49.6); HEMOGLOBIN 7.1 g/dL (14.0-18.0); LYMPHOCYTES # (AUTO) 0.6 (1.0-3.2); LYMPHOCYTES % 13.2 % (18.0-39.1); MEAN CORPUSCULAR HEMOGLOBIN 29.7 pg (28-32); MEAN CORPUSCULAR HGB CONC 32.6 g/dL (31-35); MEAN CORPUSCULAR VOLUME 91.2 fL (81-99); MONOCYTES # (AUTO) 0.4 (0.2-0.8); MONOCYTES % 7.5 % (4.4-11.3); NEUTROPHILS # (AUTO) 3.7 (2.1-6.9); NEUTROPHILS % 78.3 % (38.7-80.0); PLATELET COUNT 116 x10e3/uL (140-360); RED BLOOD COUNT 2.39 x10e6/uL (4.3-5.7); RED CELL DISTRIBUTION WIDTH 17.1 % (11.7-14.4)
[2023-03-30 06:58] LABS: ANION GAP 13.1 mmol/L (8-16); CALCIUM 8.6 mg/dL (8.4-10.2); CREATININE, SERUM 0.64 mg/dL (0.72-1.25); POTASSIUM 4.1 mmol/L (3.5-5.1)
[2023-03-30] MEDS: SODIUM CHLORIDE 452MG TAB PO SCH ×2 (09:27→16:26)
[2023-03-30] MEDS: DEXAMETHASONE 4 MG TAB PO SCH ×2 (09:28→20:58)
[2023-03-30] MEDS: DOCUSATE SODIUM 100 MG CAP PO SCH ×2 (09:28→16:26)
[2023-03-30] MEDS: HYDROXYCHLOROQUINE SULFATE 200 MG TAB PO SCH (09:28)
[2023-03-30] MEDS: PANTOPRAZOLE SOD 40 MG TABEC PO SCH (09:28)
[2023-03-30] MEDS: TAMSULOSIN HCL 0.4 MG CAP PO SCH (09:28)
[2023-03-30] MEDS: ENOXAPARIN SOD INJ 40 MG/0.4 ML SYR SC SCH (16:26)
[2023-03-31] VITALS (13 sets, daily range): BP systolic 107–128; BP diastolic 62–79; PULSE 67–86; RESP 17–22; TEMP 97.1–98.7; O2SAT 95–100
[2023-03-31] MEDS: ALBUTEROL/IPRATROPIUM 3 ML NEB NEB SCH ×6 (02:10→23:20)
[2023-03-31] MEDS: PANTOPRAZOLE SOD 40 MG TABEC PO SCH (09:28)
[2023-03-31] MEDS: DEXAMETHASONE 4 MG TAB PO SCH ×2 (09:28→21:56)
[2023-03-31] MEDS: SODIUM CHLORIDE 452MG TAB PO SCH ×2 (09:28→16:17)
[2023-03-31] MEDS: HYDROXYCHLOROQUINE SULFATE 200 MG TAB PO SCH (09:28)
[2023-03-31] MEDS: TAMSULOSIN HCL 0.4 MG CAP PO SCH (09:28)
[2023-03-31] MEDS: DOCUSATE SODIUM 100 MG CAP PO SCH ×2 (09:29→16:17)
[2023-03-31 11:51] LABS: HEMATOCRIT 24.9 % (38.2-49.6); HEMOGLOBIN 8.2 g/dL (14.0-18.0); LYMPHOCYTES # (AUTO) 0.7 (1.0-3.2); LYMPHOCYTES % 12.8 % (18.0-39.1); MEAN CORPUSCULAR HEMOGLOBIN 30.3 pg (28-32); MEAN CORPUSCULAR HGB CONC 32.9 g/dL (31-35); MEAN CORPUSCULAR VOLUME 91.9 fL (81-99); MONOCYTES # (AUTO) 0.5 (0.2-0.8); MONOCYTES % 9.7 % (4.4-11.3); NEUTROPHILS # (AUTO) 4.1 (2.1-6.9); NEUTROPHILS % 76.4 % (38.7-80.0); PLATELET COUNT 115 x10e3/uL (140-360); RED BLOOD COUNT 2.71 x10e6/uL (4.3-5.7); RED CELL DISTRIBUTION WIDTH 17.3 % (11.7-14.4)
[2023-03-31 12:09] LABS: ALBUMIN 2.3 g/dL (3.5-5.0); ALBUMIN/GLOBULIN RATIO 0.5 (0.8-2.0); ANION GAP 13.7 mmol/L (8-16); CALCIUM 8.5 mg/dL (8.4-10.2); CREATININE, SERUM 0.7 mg/dL (0.72-1.25); POTASSIUM 3.7 mmol/L (3.5-5.1)
[2023-03-31] MEDS: ENOXAPARIN SOD INJ 40 MG/0.4 ML SYR SC SCH (16:18)
[2023-04-01] VITALS (14 sets, daily range): BP systolic 102–123; BP diastolic 63–81; PULSE 70–87; RESP 16–21; TEMP 97.9–98.7; O2SAT 95–100
[2023-04-01] MEDS: ALBUTEROL/IPRATROPIUM 3 ML NEB NEB SCH ×6 (02:45→22:55)
[2023-04-01 07:08] LABS: ANION GAP 11.8 mmol/L (8-16); CALCIUM 8.7 mg/dL (8.4-10.2); CREATININE, SERUM 0.61 mg/dL (0.72-1.25); POTASSIUM 3.8 mmol/L (3.5-5.1)
[2023-04-01] MEDS: SODIUM CHLORIDE 452MG TAB PO SCH ×2 (09:28→17:25)
[2023-04-01] MEDS: DOCUSATE SODIUM 100 MG CAP PO SCH ×2 (09:28→17:25)
[2023-04-01] MEDS: HYDROXYCHLOROQUINE SULFATE 200 MG TAB PO SCH (09:28)
[2023-04-01] MEDS: TAMSULOSIN HCL 0.4 MG CAP PO SCH (09:28)
[2023-04-01] MEDS: DEXAMETHASONE 4 MG TAB PO SCH ×2 (09:28→21:11)
[2023-04-01] MEDS: PANTOPRAZOLE SOD 40 MG TABEC PO SCH (09:28)
[2023-04-01] MEDS ORDERED: ONDANSETRON HCL 4 MG ORAL DISINTEGRATING TAB PO PRN (09:30)
[2023-04-01] MEDS: ENOXAPARIN SOD INJ 40 MG/0.4 ML SYR SC SCH (17:26)
[2023-04-02 01:16] VITALS: BP 110/59; PULSE 86; RESP 20; TEMP 97.9; O2SAT 100
[2023-04-02 02:50] VITALS: PULSE 72; RESP 18; O2SAT 95
[2023-04-02] MEDS: ALBUTEROL/IPRATROPIUM 3 ML NEB NEB SCH ×2 (02:50→07:14)
[2023-04-02 05:23] VITALS: BP 104/64; PULSE 91; RESP 18; TEMP 97.6; O2SAT 99
[2023-04-02 07:14] VITALS: PULSE 86; RESP 18; O2SAT 98
[2023-04-02 08:10] VITALS: BP 105/67; PULSE 75; RESP 19; TEMP 97.9; O2SAT 100
[2023-04-02 08:27] VITALS: BP 105/67; PULSE 75; RESP 19; TEMP 97.9; O2SAT 100
[2023-04-02] MEDS: DOCUSATE SODIUM 100 MG CAP PO SCH (09:00)
[2023-04-02] MEDS: PANTOPRAZOLE SOD 40 MG TABEC PO SCH (09:22)
[2023-04-02] MEDS: TAMSULOSIN HCL 0.4 MG CAP PO SCH (09:22)
[2023-04-02] MEDS: SODIUM CHLORIDE 452MG TAB PO SCH (09:22)
[2023-04-02] MEDS: DEXAMETHASONE 4 MG TAB PO SCH (09:22)
[2023-04-02] MEDS: HYDROXYCHLOROQUINE SULFATE 200 MG TAB PO SCH (09:22)
[2023-04-02 17:18] LABS: OSMOLALITY,SERUM OSMOMETER 268 mOsmol/kg (280-301)
== END 2023-04-02 10:50 | disposition home or self-care (01) | DRG 809 ==
LOC: ER 14:06 → ERHOLD 16:44 → MED/SURG3 19:13
PROVIDERS: ADMIT Internal Medicine; ATTEND Internal Medicine
DX: D61.818 Other pancytopenia (principal); D84.821 Immunodeficiency due to drugs; E22.2 Syndrome of inappropriate secretion of antidiuretic hormone; I31.39 Other pericardial effusion (noninflammatory); I10 Essential (primary) hypertension; N40.0 Benign prostatic hyperplasia without lower urinary tract symptoms; D64.9 Anemia, unspecified; D69.6 Thrombocytopenia, unspecified; M89.9 Disorder of bone, unspecified; R11.0 Nausea; R50.9 Fever, unspecified; R07.81 Pleurodynia; Z87.891 Personal history of nicotine dependence; Z92.21 Personal history of antineoplastic chemotherapy; Z88.0 Allergy status to penicillin; Z79.899 Other long term (current) drug therapy; Z79.52 Long term (current) use of systemic steroids; Z79.51 Long term (current) use of inhaled steroids; Z85.72 Personal history of non-Hodgkin lymphomas; Z20.822 Contact with and (suspected) exposure to COVID-19
CPT/HCPCS: 36415; 71045; 71260; 74177; 80048; 80053; 81001; 83605; 83930; 83935; 84295; 84443; 84484; 85014; 85018; 85025; 85379; 87040; 87086; 87400; 93005; 93306; 94799; 99284; J0692; J0696; J1650; J7030; J7050; J7070; Q9967

== ENCOUNTER 2023-04-09 18:09 | Inpatient (IN) | payer MEDICARE ==
[~2023-04-09] VITALS: Ht 177.8 cm; Wt 65.8 kg
[~2023-04-09 18:09] MED LIST changes: +CIPROFLOXACIN500 MG PO; +HYDROCODON-ACE1 EA12 PO; +IBUPROFEN800 MG PO
[2023-04-09 18:38] LABS: HEMATOCRIT 24.2 % (38.2-49.6); LYMPHOCYTES # (AUTO) 0.7 (1.0-3.2); LYMPHOCYTES % 13.5 % (18.0-39.1); MEAN CORPUSCULAR HEMOGLOBIN 30.4 pg (28-32); MEAN CORPUSCULAR HGB CONC 33.1 g/dL (31-35); MONOCYTES # (AUTO) 0.2 (0.2-0.8); MONOCYTES % 3.6 % (4.4-11.3); NEUTROPHILS # (AUTO) 4.1 (2.1-6.9); NEUTROPHILS % 82.1 % (38.7-80.0); RED BLOOD COUNT 2.63 x10e6/uL (4.3-5.7)
[2023-04-09 18:40] LABS: PLATELET COUNT 98 x10e3/uL (140-360)
[2023-04-09 18:53] LABS: INR 1.08; PROTHROMBIN TIME 14.5 seconds (11.9-14.5)
[2023-04-09 18:56] LABS: ALBUMIN 2.4 g/dL (3.5-5.0); ALBUMIN/GLOBULIN RATIO 0.6 (0.8-2.0); ANION GAP 13.9 mmol/L (8-16); CALCIUM 7.6 mg/dL (8.4-10.2); CREATININE, SERUM 0.75 mg/dL (0.72-1.25); POTASSIUM 3.9 mmol/L (3.5-5.1)
[2023-04-09] MEDS ORDERED: IOPAMIDOL 370 MG/ML 100 ML INFUS..BTL INJ ONE (19:16)
[2023-04-09] MEDS ORDERED: SODIUM CHLORIDE 0.9% 1000ML 1,000 ML IV SCH (20:00)
[2023-04-09] MEDS ORDERED: Morphine 4mg INJECTION 4 MG/ML INJ IV PRN (20:00)
[2023-04-09] MEDS ORDERED: SODIUM CHLORIDE 0.9% 1000ML 1,000 ML IV STA (20:40)
[2023-04-10] VITALS (12 sets, daily range): BP systolic 101–124; BP diastolic 65–85; PULSE 75–95; RESP 16–24; TEMP 97.8–99.7; O2SAT 94–100
[2023-04-10] MEDS ORDERED: DOCUSATE SODIUM 100 MG CAP PO PRN (00:15)
[2023-04-10] MEDS ORDERED: ACETAMINOPHEN 325 MG TAB PO PRN (00:15)
[2023-04-10] MEDS ORDERED: DEXTROSE 50% SYRINGE 50 ML IV PRN (00:15)
[2023-04-10] MEDS ORDERED: ALBUTEROL/IPRATROPIUM 3 ML NEB NEB PRN (00:15)
[2023-04-10] MEDS ORDERED: DIPHENHYDRAMINE HCL 25 MG CAP PO PRN (00:15)
[2023-04-10] MEDS ORDERED: BENZONATATE 100 MG CAP PO PRN (00:15)
[2023-04-10] MEDS ORDERED: POTASSIUM CHLORIDE 20 MEQ TAB CR PO PRN (00:15)
[2023-04-10] MEDS ORDERED: MELATONIN 5 MG TABLET PO PRN (00:15)
[2023-04-10] MEDS ORDERED: HYDRALAZINE HCL 20 MG/ML VIAL IV PRN (00:15)
[2023-04-10] MEDS ORDERED: SIMETHICONE 80 MG CHEW PO PRN (00:15)
[2023-04-10] MEDS ORDERED: LIDOCAINE 4% PATCH TP PRN (00:15)
[2023-04-10] MEDS ORDERED: IPRATROPIUM BROMIDE 0.02% 2.5 ML NEB NEB PRN (00:30)
[2023-04-10] MEDS ORDERED: Vancomycin IV 1 GM in SODIUM CHLORIDE 0.9% 250ML 250 ML IV ONE (00:30)
[2023-04-10] MEDS ORDERED: ALBUTEROL SULF 0.083% NEB SOLN 3 ML NEB NEB PRN (00:30)
[2023-04-10] MEDS: LACTATED RINGER'S 1,000 ML INJ SCH ×2 (00:59→14:10)
[2023-04-10] MEDS ORDERED: Morphine 4mg INJECTION 4 MG/ML INJ IV PRN (04:00)
[2023-04-10 04:24] LABS: CLARITY,URINE CLEAR (CLEAR); COLOR,URINE YELLOW (YELLOW); KETONES,URINE NEGATIVE (NEGATIVE); LEUKOCYTE ESTERASE ,URINE NEGATIVE (NEGATIVE); NITRITE,URINE NEGATIVE (NEGATIVE); PROTEIN,URINE DIPSTICK 1+ (NEGATIVE); URINE UROBILINOGEN 0.2 mg/dL (0.2 - 1)
[2023-04-10 04:26] LABS: BACTERIA,URINE FEW /HPF; EPITHELIAL CELLS,URINE RARE /LPF; RBC,URINE 0-5 /HPF (0-5); WBC,URINE (MAN) 0-5 /HPF (0-5)
[2023-04-10 05:59] LABS: EOSINOPHILS % 0.3 % (0.0-6.0); HEMATOCRIT 21.3 % (38.2-49.6); LYMPHOCYTES # (AUTO) 0.7 (1.0-3.2); MEAN CORPUSCULAR HEMOGLOBIN 31.4 pg (28-32); MEAN CORPUSCULAR HGB CONC 33.3 g/dL (31-35); MEAN CORPUSCULAR VOLUME 94.2 fL (81-99); MONOCYTES # (AUTO) 0.1 (0.2-0.8); MONOCYTES % 3.7 % (4.4-11.3); NEUTROPHILS # (AUTO) 2.2 (2.1-6.9); RED BLOOD COUNT 2.26 x10e6/uL (4.3-5.7); RED CELL DISTRIBUTION WIDTH 18.9 % (11.7-14.4)
[2023-04-10 06:01] LABS: PLATELET COUNT 91 x10e3/uL (140-360)
[2023-04-10 06:02] LABS: HEMOGLOBIN 7.1 g/dL (14.0-18.0)
[2023-04-10 06:14] LABS: ALBUMIN 1.9 g/dL (3.5-5.0); ALBUMIN/GLOBULIN RATIO 0.6 (0.8-2.0); ANION GAP 8.8 mmol/L (8-16); CALCIUM 7.1 mg/dL (8.4-10.2); CREATININE, SERUM 0.65 mg/dL (0.72-1.25); POTASSIUM 3.8 mmol/L (3.5-5.1)
[2023-04-10] MEDS: PANTOPRAZOLE SOD 40 MG TABEC PO SCH (08:20)
[2023-04-10] MEDS ORDERED: ALBUTEROL/IPRATROPIUM 3 ML NEB NEB ONE (13:15)
[2023-04-10] MEDS: DEXAMETHASONE SOD PHOS 10 MG/1 ML VIAL IV SCH ×2 (13:17→21:00)
[2023-04-10] MEDS: ENOXAPARIN SOD INJ 40 MG/0.4 ML SYR SC SCH (17:02)
[2023-04-10] MEDS ORDERED: IOPAMIDOL 370 MG/ML 100 ML INFUS..BTL INJ ONE (19:44)
[2023-04-10] MEDS: ONDANSETRON HCL INJ 2MG/ML 2ML 2 MG/ML VIAL IV PRN (21:50)
[2023-04-11] VITALS (10 sets, daily range): BP systolic 105–122; BP diastolic 68–75; PULSE 60–84; RESP 16–22; TEMP 97.4–97.9; O2SAT 95–100
[2023-04-11] MEDS: ONDANSETRON HCL INJ 2MG/ML 2ML 2 MG/ML VIAL IV PRN (05:52)
[2023-04-11 06:22] LABS: HEMATOCRIT 22.7 % (38.2-49.6); HEMOGLOBIN 7.3 g/dL (14.0-18.0); LYMPHOCYTES # (AUTO) 0.7 (1.0-3.2); LYMPHOCYTES % 28.3 % (18.0-39.1); MEAN CORPUSCULAR HEMOGLOBIN 29.9 pg (28-32); MEAN CORPUSCULAR HGB CONC 32.2 g/dL (31-35); MONOCYTES # (AUTO) 0.1 (0.2-0.8); MONOCYTES % 4.3 % (4.4-11.3); NEUTROPHILS # (AUTO) 1.7 (2.1-6.9); NEUTROPHILS % 66.6 % (38.7-80.0); PLATELET COUNT 96 x10e3/uL (140-360); RED BLOOD COUNT 2.44 x10e6/uL (4.3-5.7); RED CELL DISTRIBUTION WIDTH 18.4 % (11.7-14.4)
[2023-04-11 06:39] LABS: ANION GAP 12.3 mmol/L (8-16); CREATININE, SERUM 0.65 mg/dL (0.72-1.25); MAGNESIUM 1.5 MG/DL (1.3-2.1); PHOSPHORUS 3.2 MG/DL (2.3-4.7); POTASSIUM 4.3 mmol/L (3.5-5.1)
[2023-04-11 07:08] LABS: THYROID STIMULATING HORMONE 0.299 uIU/mL (0.350-4.940)
[2023-04-11] MEDS: PANTOPRAZOLE SOD 40 MG TABEC PO SCH (08:08)
[2023-04-11] MEDS: DEXAMETHASONE SOD PHOS 10 MG/1 ML VIAL IV SCH ×2 (08:08→21:01)
[2023-04-11] MEDS ORDERED: KETOROLAC TROMETHAMINE 30 MG/ML VIAL IV ONE (12:00)
[2023-04-11] MEDS: NAPROXEN 250 MG TAB PO SCH (18:20)
[2023-04-11] MEDS: ENOXAPARIN SOD INJ 40 MG/0.4 ML SYR SC SCH (18:20)
[2023-04-12] VITALS (8 sets, daily range): BP systolic 103–179; BP diastolic 57–70; PULSE 61–73; RESP 17–21; TEMP 97.5–98.5; O2SAT 94–98
[2023-04-12 06:16] LABS: HEMATOCRIT 21.9 % (38.2-49.6); HEMOGLOBIN 7.3 g/dL (14.0-18.0)
[2023-04-12 06:49] LABS: ANION GAP 9.7 mmol/L (8-16); CALCIUM 7.6 mg/dL (8.4-10.2); CREATININE, SERUM 0.62 mg/dL (0.72-1.25); POTASSIUM 3.7 mmol/L (3.5-5.1)
[2023-04-12] MEDS: DEXAMETHASONE SOD PHOS 10 MG/1 ML VIAL IV SCH (08:24)
[2023-04-12] MEDS: PANTOPRAZOLE SOD 40 MG TABEC PO SCH (08:25)
[2023-04-12] MEDS: NAPROXEN 250 MG TAB PO SCH (08:25)
[2023-04-12] MEDS ORDERED: HYDROXYCHLOROQUINE SULFATE 200 MG TAB PO SCH (09:00)
[2023-04-12] MEDS ORDERED: TAMSULOSIN HCL 0.4 MG CAP PO SCH (09:00)
[2023-04-12] MEDS ORDERED: Morphine 2mg Syringe 2 MG/ML SYR IV PRN (14:00)
[2023-04-12] MEDS ORDERED: PREDNISONE10 MG PO (15:44)
[2023-04-12] MEDS ORDERED: ONDANSETRON HCL 4 MG ORAL DISINTEGRATING TAB PO PRN (15:45)
[2023-04-12] MEDS ORDERED: AUGMENTIN 500-1 EACH PO (15:45)
== END 2023-04-12 16:06 | disposition home or self-care (01) | DRG 871 ==
LOC: ER 18:18 → ERHOLD 19:50 → MED/SURG2 04-10 00:02
PROVIDERS: ADMIT Internal Medicine; ATTEND Internal Medicine
DX: A41.9 Sepsis, unspecified organism (principal); J18.9 Pneumonia, unspecified organism; E22.2 Syndrome of inappropriate secretion of antidiuretic hormone; C79.51 Secondary malignant neoplasm of bone; J90 Pleural effusion, not elsewhere classified; R06.03 Acute respiratory distress; R65.20 Severe sepsis without septic shock; I10 Essential (primary) hypertension; M19.90 Unspecified osteoarthritis, unspecified site; D64.9 Anemia, unspecified; N40.0 Benign prostatic hyperplasia without lower urinary tract symptoms; R16.1 Splenomegaly, not elsewhere classified; J20.9 Acute bronchitis, unspecified; D69.6 Thrombocytopenia, unspecified; Z20.822 Contact with and (suspected) exposure to COVID-19; Z87.891 Personal history of nicotine dependence; Z92.21 Personal history of antineoplastic chemotherapy; Z85.72 Personal history of non-Hodgkin lymphomas; Z86.16 Personal history of COVID-19; Z88.0 Allergy status to penicillin; Z87.898 Personal history of other specified conditions
CPT/HCPCS: 36415; 71260; 74177; 80048; 80053; 81001; 82550; 83036; 83605; 83735; 83880; 84100; 84443; 84484; 85014; 85018; 85025; 85610; 87040; 87086; 93005; 94640; 94799; 99284; J1100; J1650; J1885; J2405; J2543; J7030; J7050; Q9967